=== PATIENT | male | born 1950 | race Caucasian/White ===

== ENCOUNTER 2022-09-02 11:44 | Outpatient (CLI) | payer MEDICARE ==
--- NOTE | 2022-09-02 15:56 | XRAY Report ---
PROCEDURE: Chest 2 View X-Ray INDICATIONS: DYSPNEA TECHNIQUE: 2 views of the chest were acquired. COMPARISON: None. FINDINGS: Surgical changes and devices: None. Lungs and pleura: No pleural effusions or pneumothorax. No suspicious focal airspace opacity identif ied. Mediastinum: Cardiac silhouette is at the upper limits of normal in size. Borderline pulmonary vascu lar congestion. Bones and chest wall: No suspicious bony lesions. Overlying soft tissues appear unremarkable. IMPRESSION: Cardiac silhouette is at the upper limits of normal in size with borderline or minimal pulmonary vasc ular congestion. Correlation for fluid overload/CHF may be helpful. No consolidation identified. Reviewed by: Abdi Funk MD on 09/02/2022 3:54 PM PDT Approved by: Abdi Funk MD on 09/02/2022 3:54 PM PDT Station ID: [id number]
== END 2022-09-02 11:45 | disposition home or self-care (01) ==
LOC: DI 11:44
PROVIDERS: ATTEND Physician Assistant
DX: R06.00 Dyspnea, unspecified (principal)

== ENCOUNTER 2022-09-28 13:09 | Emergency (ER) | payer MEDICARE ==
[2022-09-28 13:37] LABS: BASOPHILS % (AUTO) 0.6 %; EOSINOPHILS # (AUTO) 0.1 10^3/uL (0.0-0.7); EOSINOPHILS % (AUTO) 1.1 %; HGB - HEMOGLOBIN 12.6 g/dL (14.0-18.0); LYMPHOCYTES # (AUTO) 1.3 10^3/uL (1.5-3.5); LYMPHOCYTES % (AUTO) 19.3 %; MEAN CORPUSCULAR HGB CONC 32.3 g/dL (32.0-36.0); MEAN CORPUSCULAR VOLUME 92.9 fL (80.0-94.0); MEAN PLATELET VOLUME 8.8 fL (7.4-11.4); MONOCYTES # (AUTO) 0.7 10^3/uL (0.0-1.0); NEUTROPHILS # (AUTO) 4.4 10^3/uL (1.5-6.6); NEUTROPHILS % (AUTO) 67.7 %; PLT - PLATELET COUNT 232 10^3/uL (130-450); RED CELL DISTRIBUTION WIDTH 14.6 % (12.0-15.0); WHITE BLOOD COUNT 6.5 x10^3/uL (4.8-10.8)
[2022-09-28 13:54] LABS: ALBUMIN 3.9 g/dL (3.2-5.5); ALBUMIN/GLOBULIN RATIO 1.5 (1.0-2.2); BILIRUBIN,TOTAL 1.1 mg/dL (0.2-1.0); CALCIUM 9.1 mg/dL (8.5-10.3); CREATININE 1.4 mg/dL (0.6-1.2); POTASSIUM 4.1 mmol/L (3.5-5.0); TOTAL PROTEIN 6.5 g/dL (6.7-8.2)
--- NOTE | 2022-09-28 14:25 | ED Physician Documentation ---
PD HPI DYSPNEA - Stated complaint Stated Complaint: SOA,LEG SWELLING - Chief complaint Chief Complaint: Resp - History obtained from History obtained from: Patient, Family (spouse) - History of Present Illness Timing - onset: How many weeks ago (several weeks to couple of months.) Timing - onset during: Sleep, Rest Timing - details: Gradual onset, Still present Inciting event(s): Emotional event ( states there has been lots of stress recently with illness of , travel, and other home stresses. Pt is not alcoholic. No drug use. No new meds.). No: URI Worsened by: Exertion, Laying flat Associated symptoms: Bilateral edema. No: Fever, Cough Similar symptoms before: Has not had sx before Recently seen: Not recently seen Review of Systems Constitutional: reports: Fatigue. denies: Fever, Chills, Weight Loss Nose: denies: Rhinorrhea / runny nose, Congestion Throat: denies: Sore throat Cardiac: reports: Pedal edema. denies: Chest pain / pressure, Palpitations, Calf pain Respiratory: reports: Dyspnea. denies: Cough GI: denies: Abdominal Pain, Nausea, Vomiting, Diarrhea, Bloody / black stool Skin: denies: Rash, Lesions Neurologic: reports: Generalized weakness. denies: Focal weakness, Numbness, Near syncope, Altered mental status PD PAST MEDICAL HISTORY - Past Medical History Past Medical History: No Cardiovascular: None Respiratory: None Neuro: None Endocrine/Autoimmune: None GI: None Musculoskeletal: None - Present Medications Home Medications: Ambulatory Orders Medication Instructions Recorded Confirmed Furosemide [Lasix] 20 mg PO DAILY #20 tablet 09/28/22 Metoprolol Tartrate [Lopressor] 25 mg PO DAILY #30 tablet 09/28/22 Potassium Bicarbonate 25 meq PO DAILY #20 tablet 09/28/22 [K-Effervescent] - Allergies Allergies/Adverse Reactions: Allergies Allergy/AdvReac Type Severity Reaction Status Date / Time Sulfa (Sulfonamide Allergy Unknown Verified 09/28/22 13:13 Antibiotics) PD ED PE NORMAL - Vitals Vital signs reviewed: Yes - General General: Alert and oriented X 3, No acute distress, Well developed/nourished - HEENT HEENT: Pharynx benign - Neck Neck: Supple, no meningeal sign, No adenopathy - Cardiac Cardiac: RRR, No murmur - Respiratory Respiratory: No respiratory distress. No: Clear bilaterally (fine crackles in bases only. No coarse sounds. no wheezing. ) - Abdomen Abdomen: Soft, Non tender - Rectal Rectal: Deferred - Back Back: No CVA TTP, No spinal TTP - Derm Derm: Normal color, No rash - Extremities Extremities: No calf tenderness / cord, Other (2+ edema in both lower legs and ankles. ) - Neuro Neuro: Alert and oriented X 3, No motor deficit, No sensory deficit, Normal speech Results - Vitals Vitals: Vital Signs - 24 hr 09/28/22 09/28/22 09/28/22 13:13 15:40 18:07 Temperature 36.5 C Heart Rate 100 110 H 98 Respiratory 18 18 99 H Rate Blood Pressure 120/90 H 137/85 H 135/84 H O2 Saturation 97 98 16 L Oxygen O2 Source Room air - EKG (time done) 13:47 EKG releavant findings:: EKG personally interpreted by author of this note. Relevant findings are: Rate: Rate (enter#) (97) Rhythm: NSR [place]: Normal Ischemia: Normal ST segments. No: ST elevation c/w ischemia, ST depression - Labs Labs: Laboratory Tests 09/28/22 09/28/22 09/28/22 13:28 13:28 13:28 WBC 6.5 RBC 4.20 L Hgb 12.6 L Hct 39.0 L MCV 92.9 MCH 30.0 MCHC 32.3 RDW 14.6 Plt Count 232 MPV 8.8 Neut # (Auto) 4.4 Lymph # (Auto) 1.3 L [place] # (Auto) 0.7 Eos # (Auto) 0.1 Baso # (Auto) 0.0 Absolute Nucleated RBC 0.00 Nucleated RBC % 0.0 Sodium 139 Potassium 4.1 Chloride 107 Carbon Dioxide 24 Anion Gap 8.0 BUN 23 H Creatinine 1.4 H Estimated GFR (MDRD) 50 L Glucose 122 H Calcium 9.1 Total Bilirubin 1.1 H AST 21 ALT 32 Alkaline Phosphatase 62 B-Natriuretic Peptide 2214 H Total Protein 6.5 L Albumin 3.9 Globulin 2.6 Albumin/Globulin Ratio 1.5 Lipase 20 L - Rads (name of study) chest xray Relevant Findings:: Prelim report reviewed, EMP independent interpretation of test (vascular congestion c/w edema. ), See rad report PD Medical Decision Making - ED course Complexity details: reviewed results, considered differential (orthopnea with leg edema and some exertional dyspnea now as well. Sounds like new onset CHF. However no chest pains. Needs further heart eval, but seems stable with good sats/etc that outpt is reasonable, with initiating beta regis and diuretic at least. ), d/w patient ED course: The patient has had several weeks to a month or more of orthopnea particularly at night when sleeping and some lower leg edema. No calf tenderness or pains. He has noticed then some exertional dyspnea mildly over the last week or 2. He does not get chest pains. Here today for evaluation as it seems to be more tomy thersome the last couple of days. He does not have any history of heart disease. He does not have elevated blood pressure. says he snores but not apparent apneic episodes. Still, consider some contribution of sleep hypoxia/apnea related to development of symptoms/CHF. No recent URI/viral illness, but consider cardiomyopathy as cause of symptoms. ECHO would be beneficial. Evaluation here with EKG, chest x-ray, blood tests show some vascular congestion on x-ray and an elevated BNP. His kidney function is slightly elevated have a creatinine of 1.4. Electrolytes are good. His EKG showed a sinus rhythm without any ischemic changes. At this date and time of day, we do not have echo available. His heart monitor showing a sinus rhythm with mild tachycardia at the 90-100 range. He was given a dose of Lasix and had considerable diuresis, going to the bathroom several times. He was given a dose of metoprolol 25 mg orally. At this point he appears well and has had gradual progressive symptoms over several weeks or more. I feel the patient is stable for outpatient work-up with initiation of treatment. He is comfortable with this as is his . Departure - Departure Disposition: 01 Home, Self Care Clinical Impression: Orthopnea, Snores Congestive heart failure Qualifiers: Heart failure type: unspecified Heart failure chronicity: acute Qualified Code(s): I50.9 - Heart failure, unspecified Condition: Stable Record reviewed to determine appropriate education?: Yes Instructions: ED CHF General Follow-Up: NATALIIA LITTLE PA [Primary Care Provider] - [facility] - Card [Provider Group] Prescriptions: Potassium Bicarbonate [K-Effervescent] 25 meq PO DAILY #20 tablet Furosemide [Lasix] 20 mg PO DAILY #20 tablet Metoprolol Tartrate [Lopressor] 25 mg PO DAILY #30 tablet Comments: Your symptoms along with the chest x-ray and blood tests are consistent with apparent congestive heart failure. We can start treating this with a water pill/diuretic as well as a beta-regis which is a medication to decrease the forcefulness of the heart pumping and to be more efficient. This does want to have further evaluation with ultrasound of the heart called echocardiogram and also likely some stress testing to look for improper blood flow to the heart (angina). There can be different reasons for the cause of this related to inflammation or infection, ischemia/improper blood flow, persistent high blood pressure, persistent stress among other reasons. Contact your primary care next business day for follow-up. They will presumably want to have your urgent referral for cardiology to get further evaluation. They could potentially order an outpatient echocardiogram I had of the cardiology visit as well to get that started. I would hope for improvement in your symptoms with a combination of the medications over the next several days to a week. Return to the ER if worsening symptoms generally. Concurrent with use of the diuretic/water pill furosemide, you will want to add a potassium supplement daily as well as the diuretic will cause you to lose potassium. We will hold the metoprolol beta-regis if you find that your heart rate is down in the 50s or lower as a effect of the medication is to lower your heart rate. I sent the prescriptions to [facility] pharmacy. I also enclosed a name of some of the cardiologists in [place] if you are able to see them directly without primary care referral. Discharge Date/Time: 09/28/22 18:08
[2022-09-28] MEDS ORDERED: FUROSEMIDE 40 MG/4 ML VIAL IVP STA (15:19)
--- NOTE | 2022-09-28 16:07 | XRAY Report ---
PROCEDURE: Chest 1 View X-Ray INDICATIONS: dyspnea TECHNIQUE: One view of the chest was acquired. COMPARISON: 09/02/2022. FINDINGS: Surgical changes and devices: None. Lungs and pleura: Small left pleural effusion is likely present with blunting of left costophrenic a ngle. No pneumothorax. There is pulmonary vascular congestion. Increased interstitial opacities in bi lateral lung angelo also noted concerning for mild pulmonary edema. Mediastinum: Mediastinal contours appear normal. Heart size is enlarged. Bones and chest wall: No suspicious bony lesions. Overlying soft tissues appear unremarkable. IMPRESSION: Congestive changes and mild pulmonary edema. Small left pleural effusion. Cannot rule out underlying left basilar infiltrate versus atelectasis. No pneumothorax. Reviewed by: Justin Trevino MD on 09/28/2022 4:06 PM PDT Approved by: Justin Trevino MD on 09/28/2022 4:06 PM PDT Station ID: [id number]
[2022-09-28] MEDS ORDERED: METOPROLOL TARTRATE 50 MG TABLET PO STA (17:50)
[2022-09-28 18:12] VITALS: BP 135/84
== END 2022-09-28 18:08 | disposition home or self-care (01) ==
LOC: ED 13:09
DX: R06.01 Orthopnea (principal); R06.83 Snoring; I50.9 Heart failure, unspecified
CPT/HCPCS: 36415; 71045; 80053; 83690; 83880; 85025; 93005; 96374; 99284; A9270

== ENCOUNTER 2022-11-11 09:01 | Outpatient (CLI) | payer MEDICARE ==
[2022-11-11 09:33] LABS: CALCIUM 9.5 mg/dL (8.5-10.3); CREATININE 1.4 mg/dL (0.6-1.3); POTASSIUM 3.9 mmol/L (3.5-4.5)
== END 2022-11-11 09:02 | disposition home or self-care (01) ==
LOC: LAB 09:01
PROVIDERS: ATTEND Nurse Practitioner
DX: I50.40 Unspecified combined systolic (congestive) and diastolic (congestive) heart failure (principal)
CPT/HCPCS: 36415; 80048

== ENCOUNTER 2023-03-19 17:59 | Outpatient (CLI) | payer MEDICARE ==
[2023-03-19 18:26] LABS: ALBUMIN 4.3 g/dL (3.2-5.5); ALBUMIN/GLOBULIN RATIO 1.8 (1.0-2.2); BILIRUBIN,TOTAL 0.4 mg/dL (0.2-1.0); CALCIUM 9.5 mg/dL (8.5-10.3); CREATININE 1.4 mg/dL (0.6-1.3); POTASSIUM 3.8 mmol/L (3.5-4.5); TOTAL PROTEIN 6.7 g/dL (6.4-8.9)
== END 2023-03-19 18:00 | disposition home or self-care (01) ==
LOC: LAB 17:59
PROVIDERS: ATTEND Internal Medicine Cardiovascular Disease
DX: I50.40 Unspecified combined systolic (congestive) and diastolic (congestive) heart failure (principal); I42.8 Other cardiomyopathies; R79.89 Other specified abnormal findings of blood chemistry; E78.00 Pure hypercholesterolemia, unspecified
CPT/HCPCS: 36415; 80053

== ENCOUNTER 2023-04-22 07:46 | Outpatient (CLI) | payer MEDICARE ==
[2023-04-24 13:10] LABS: FREE TESTOSTERONE(DIRECT) 1.4 pg/mL (6.6-18.1)
== END 2023-04-22 07:47 | disposition home or self-care (01) ==
LOC: LAB 07:46
PROVIDERS: ATTEND Registered Nurse
DX: R68.82 Decreased libido (principal)
CPT/HCPCS: 36415; 84402; 84403

== ENCOUNTER 2023-10-18 16:40 | Outpatient (CLI) | payer MEDICARE | END 2023-10-18 16:41 | disposition home or self-care (01) | LOC: LAB 16:40 | PROVIDERS: ATTEND Internal Medicine Cardiovascular Disease | DX: D64.9 Anemia, unspecified (principal) | CPT/HCPCS: 36415; 82607; 82746; 83540; 84466 ==

== ENCOUNTER 2023-12-09 16:05 | Outpatient (CLI) | payer MEDICARE | END 2023-12-09 16:06 | disposition home or self-care (01) | LOC: LAB 16:05 | PROVIDERS: ATTEND Internal Medicine Cardiovascular Disease | DX: D50.9 Iron deficiency anemia, unspecified (principal); D64.9 Anemia, unspecified; R53.83 Other fatigue | CPT/HCPCS: 36415; 82607; 82746; 83540; 84443; 84466 ==